=== PATIENT | female | born 2000 | race Caucasian/White ===

== ENCOUNTER 2020-03-01 04:05 | Emergency (ER) | payer OTHER ==
[~2020-03-01] VITALS: Ht 167.6 cm; Wt 68.0 kg
[2020-03-01 04:14] VITALS: BP 140/90
--- NOTE | 2020-03-01 04:17 | NUR ---
TO LOBBY A/W BED AMBULATORY
--- NOTE | 2020-03-01 04:55 | NUR ---
SEEN AND EXAMINED BY AKASH WITH ORDERS AND CARRIED OUT.
--- NOTE | 2020-03-01 05:00 | NUR ---
UA SAMPLE COLLECTED AND SENT TO LAB.
--- NOTE | 2020-03-01 05:50 | NUR ---
19 Y/O FEMALE BIB SELF FOR C/O PAINFUL URINATION X 1 DAY AGO. SHE DENIES HAVING ANY PAIN AT THIS TIME. STATES SHE CONTINUES TO HAVE NORMAL VOIDING PATTERN. STATES HER LMP WAS X 2WEEKS AGO. PMHX: DENIES NKA
--- NOTE | 2020-03-01 05:50 | NUR ---
PT WALKED FROM [facility] TO [facility], AMBULATED WITH STEADY GAIT.
--- NOTE | 2020-03-01 06:19 | NUR ---
Patient discharged with v/s stable. Written and verbal after care instructions given and explained. Patient alert, oriented and verbalized understanding of instructions. Carried with steady gait. All questions addressed prior to discharge. ID band removed. Patient advised to follow up with PMD. Rx of KEFLEX given. Patient educated on indication of medication including possible reaction and side effects. Opportunity to ask questions provided and answered.
[2020-03-01 10:52] LABS: APPEARANCE,URINE CLOUDY (CLEAR); BILIRUBIN,URINE NEGATIVE (NEGATIVE); BLOOD, URINE NEGATIVE (NEGATIVE); COLOR,URINE YELLOW (YELLOW); LEUKOCYTE ESTERASE ,URINE 1+ (NEGATIVE); NITRITE, URINE POSITIVE (NEGATIVE); UGLUCOSE NEGATIVE (NEGATIVE)
[2020-03-01 14:51] LABS: WBC,URINE 20-60 /HPF (0-5)
== END 2020-03-01 06:19 | disposition home or self-care (01) ==
LOC: MED 04:05
DX: N39.0 Urinary tract infection, site not specified (principal)
CPT/HCPCS: 81001; 87086; 99283

== ENCOUNTER 2020-05-06 10:21 | Emergency (ER) | payer OTHER ==
[~2020-05-06] VITALS: Ht 167.6 cm; Wt 68.0 kg
[2020-05-06 10:23] VITALS: BP 127/87
--- NOTE | 2020-05-06 10:29 | NUR ---
AMBULATED TO BED 7
--- NOTE | 2020-05-06 10:30 | NUR ---
19 y/o F coming in from home with c/c sore throat x 3 days. Patient states sore throat that began 3 days and has not gotten better. Patient states 8/10 pain from the sore throat. States she took cough drops last night with no relief. Patient states associated fever, chills, and "sweats" that occurs at night time. Patient reports sore throat and similar symptoms occured when she was diagnosed with tonsillitis 2 years ago. Patient also states this morning, she woke up with lesions on her lip and tongue. Upon assessment, patient is noted with open white lesions in the middle of her upper and lower lip, and on the outer edge of tongue. Pt denies shortness of breath, dizziness, blurry vision, cough, abdominal pain. Pt placed onto BP cuff, pulse oximetry. Lung sounds CTA. Breathing even/unlabored. Bed locked in lowest position, side rails x 1, call light in reach. PMH/Meds: Denies NKA
[2020-05-06] MEDS ORDERED: AMOX500C25 PO (10:59)
[2020-05-06] MEDS ORDERED: IBUP-2213 PO (10:59)
[2020-05-06] MEDS ORDERED: LIDOCAINE VISCOUS 2% 20 ML UDC PO ONE (11:00)
[2020-05-06] MEDS ORDERED: AMOXICILLIN 500 MG CAP PO ONE (11:00)
--- NOTE | 2020-05-06 11:18 | NUR ---
Patient states positive relief with medication, rates pain 6/10 at this time. Pt in position of comfort. All pt needs met at this time. Equal chest rise and fall. Bed locked in lowest position, side rails x 1.
[2020-05-06 11:24] VITALS: BP 122/92
--- NOTE | 2020-05-06 11:24 | NUR ---
Patient discharged with v/s stable. Written and verbal after care instructions given and explained. Patient alert, oriented and verbalized understanding of instructions. Ambulatory with steady gait. All questions addressed prior to discharge. ID band removed. Patient advised to follow up with PMD. Rx of Amoxicillin, Ibuprofen given. Patient educated on indication of medication including possible reaction and side effects. Opportunity to ask questions provided and answered.
== END 2020-05-06 11:24 | disposition home or self-care (01) ==
LOC: MED 10:21
DX: J03.90 Acute tonsillitis, unspecified (principal); Z79.899 Other long term (current) drug therapy
CPT/HCPCS: 99283